=== PATIENT | male | born 1955 | race Caucasian/White ===

== ENCOUNTER 2016-03-04 11:51 | Emergency (ER) | payer OTHER ==
[~2016-03-04] VITALS: Ht 170.2 cm; Wt 80.0 kg
[~2016-03-04 11:51] MED LIST: ASPI81TA28 PO; ATOR-22 PO; FLNIN NAE; LANS30CA12 PO; METO50TA16 PO; MULT-923 PO; PROB1TAB16 PO; TRAMTAB5 PO; TYLOTC500 PO
[2016-03-04 11:57] VITALS: TEMP 37; Ht 170.2 cm; Wt 80.0 kg
[2016-03-04] MEDS ORDERED: ONDANSETRON INJ 2 MG/ML 2 ML VIAL IV STA (12:55)
[2016-03-04] MEDS ORDERED: KETOROLAC TROMETHAMINE 30 MG/ML VIAL IV STA (12:55)
[2016-03-04] MEDS ORDERED: SODIUM CHLORIDE 0.9% 1000ML 2,000 ML IV STA (12:55)
[2016-03-04] MEDS ORDERED: MoRPHine SULFATE 10 MG/ML CARP/VIAL IV STA (12:55)
[2016-03-04] MEDS ORDERED: HYDROCODONE/HOMATROPINE SYRUP 5MG/1.5MG 5ML UDP PO STA (12:55)
[2016-03-04 13:09] LABS: BASO % 0.3 %; BASO ABS # 0.03 K/uL (0-0.2); COMPLETE YES; EOS % 1.5 %; HEMATOCRIT 42.2 % (42-52); IG% 0.2 %; LYMPH % 16.9 %; LYMPH ABS # 1.63 K/uL (1.2-3.4); MEAN CELL VOLUME 88.1 fL (80-100); MEAN CORPUSCULAR HEMOGLOBIN 30.9 pg (25-34); MEAN CORPUSCULAR HGB CONC 35.1 g/dl (32-36); MEAN PLATELET VOLUME 10.5 fL (7.4-10.4); MONO % 9.7 %; NEUT % 71.4 %; PLATELET COUNT 234 K/uL (130-400); RED BLOOD COUNT 4.79 M/uL (4.7-6.1); WHITE BLOOD COUNT 9.63 K/uL (4.8-10.8)
[2016-03-04 13:17] LABS: BUN/CREATININE RATIO 12.7 (10-20); CALCIUM 8.6 mg/dl (8.5-10.1); CREATININE 0.84 mg/dl (0.60-1.40); POTASSIUM 4.1 mmol/L (3.5-5.1)
[2016-03-04] MEDS ORDERED: LEVAQUIN 750MG / 150ML D5W IV STA (14:09)
--- NOTE | 2016-03-04 14:10 | DIAGNOSTIC IMAGING REPORT ---
TWO VIEW CHEST CLINICAL HISTORY: Cough. FINDINGS: PA and lateral chest radiographs are compared to study dated 02/06/2016. The heart is enlarged. The pulmonary vasculature is noncongested. There is bibasilar consolidation. No pleural effusion is seen. The upper lobes appear clear. Chronic residual thickening is similar to previous. There is no pneumothorax. The skeletal structures are osteopenic. The bony thorax appears intact. Degenerative changes noted throughout the thoracic spine. IMPRESSION: 1. There is bibasilar patchy airspace consolidation, new from 02/06/2016. Correlate clinically for evidence of developing pneumonia/aspiration pneumonitis. Radiographic follow-up to resolution is recommended. 2. Mild cardiac enlargement without radiographic evidence of congestive failure. Electronically signed by: Boni Carvalho M.D. 03/04/2016 2:08 PM
[2016-03-04] MEDS ORDERED: LEVO1TAB35 PO (16:11)
[2016-03-04] MEDS ORDERED: HYDR5SYP11 PO (16:14)
[2016-03-04 16:27] VITALS: BP 149/96; PULSE 74; O2SAT 96
--- NOTE | 2016-03-04 17:56 | EMERGENCY ROOM VISIT NOTE ---
History Report prepared by Carlos Albertoibstan: Arlene Tyson Under the Supervision of: Dr. Brian Siegel D.O. First contact with patient: 12:42 Chief Complaint: ILLNESS Stated Complaint: COUGH,CONGESTION,DIZZINESS,FEVER History of Present Illness The patient is a 60 year old male who presents to the Emergency Room with complaints of a persistent cough for the past 1 week. He states today is the "best" the cough has been and also complains of congestion and a fever. He reports he also vomited on , 7 days ago, and complains of body aches from all of the coughing he has been doing, especially in his back and chest. He denies any history of asthma or COPD. 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 His last bowel movement was last night and normal. The patient admits to some recent sick contacts at work. He also complains of some dizziness. He denies any headache, change in vision, chest pain, shortness of breath, diarrhea, pain with urination, and melena. 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 A total of 10 systems reviewed and were otherwise negative. Past Medical & Surgical Medical Problems: (1) Esophageal dilatation (2) GERD (gastroesophageal reflux disease) (3) Hx of dysphagia (4) Hyperlipidemia (5) Kidney stones Family History FHx: cancer FHx: heart disease FHx: kidney disease/stones Social History Smoking Status: Never Smoker Alcohol Use: none Drug Use: none Marital Status: single Housing Status: lives alone Occupation Status: employed Current/Historical Medications Scheduled Aspirin (Aspirin Ec), 81 MG PO QAM Atorvastatin (Lipitor), 1 TAB PO HS Fluticasone Propionate (Flonase Nasal [place]), 2 SPRAYS SUE QAM Lansoprazole (Prevacid), 30 MG PO QPM Levofloxacin (Levaquin), 750 MG PO QD@08 Metoprolol Tartrate (Lopressor) (Lopressor), 50 MG PO BID Multiple Vitamins W/ Minerals (Multivitamin Men), 1 TAB PO BID Probiotic Product (Probiotic), 1 TAB PO QPM Scheduled PRN Acetaminophen (Tylenol), 500 MG PO Q6 PRN Hydrocodone W/ Homatropine (Hycodan 5/1.5MG 5 Ml), 5 ML PO Q6H PRN for Cough Allergies Coded Allergies: Hydrocodone (Verified Adverse Reaction, Unknown, MOOD CHANGES, 03/04/16) GETS STONED Physical Exam Vital Signs Date Time Temp Pulse Resp B/P Pulse Ox O2 Delivery O2 Flow Rate FiO2 03/04/16 16:27 74 18 149/96 96 03/04/16 15:00 74 20 155/106 94 03/04/16 13:27 86 18 125/86 98 Room Air 03/04/16 11:57 37.0 93 18 132/90 98 Room Air Physical Exam GENERAL: Patient is sitting up in bed with persistent dry cough, alert, uncomfortable appearing, well nourished, no distress, non-toxic EYE EXAM: normal conjunctiva OROPHARYNX: no exudate, no erythema, lips, buccal mucosa, and tongue normal and mucous membranes are moist NECK: supple, no nuchal rigidity, no adenopathy, non-tender LUNGS: Clear to auscultation. Normal chest wall mechanics HEART: no murmurs, S1 normal and S2 normal CHEST: Reproducible tenderness over chest wall. ABDOMEN: abdomen soft, non-tender, normo-active bowel sounds, no masses, no rebound or guarding. BACK: Back is symmetrical on inspection and there is no deformity, no midline tenderness, no CVA tenderness. SKIN: no rashes and no bruising UPPER EXTREMITIES: upper extremities are grossly normal. LOWER EXTREMITIES: No pitting edema. NEURO EXAM: Normal sensorium, cranial nerves II-XII grossly intact, normal speech, no gross weakness of arms, no gross weakness of legs. Gross sensation intact. Medical Decision & Procedures ER Provider Diagnostic Interpretation: This X-Ray was reviewed and interpreted by myself and the radiologist. TWO VIEW CHEST IMPRESSION: 1. There is bibasilar patchy airspace consolidation, new from 02/06/2016. Correlate clinically for evidence of developing pneumonia/aspiration pneumonitis. Radiographic follow-up to resolution is recommended. 2. Mild cardiac enlargement without radiographic evidence of congestive failure. Electronically signed by: Boni Carvalho M.D. 03/04/2016 2:08 PM Laboratory Results 03/04/16 12:31 Red Blood Count 4.79, Mean Corpuscular Volume 88.1, Mean Corpuscular Hemoglobin 30.9, Mean Corpuscular Hemoglobin Concent 35.1, Mean Platelet Volume 10.5, Neutrophils (%) (Auto) 71.4, Lymphocytes (%) (Auto) 16.9, Monocytes (%) (Auto) 9.7, Eosinophils (%) (Auto) 1.5, Basophils (%) (Auto) 0.3, Neutrophils # (Auto) 6.88, Lymphocytes # (Auto) 1.63, Monocytes # (Auto) 0.93, Eosinophils # (Auto) 0.14, Basophils # (Auto) 0.03 03/04/16 12:31 Test 03/04/16 12:31 03/04/16 13:05 White Blood Count 9.63 K/uL (4.8-10.8) Red Blood Count 4.79 M/uL (4.7-6.1) Hemoglobin 14.8 g/dL (14.0-18.0) Hematocrit 42.2 % (42-52) Mean Corpuscular Volume 88.1 fL (80-100) Mean Corpuscular Hemoglobin 30.9 pg (25-34) Mean Corpuscular Hemoglobin Concent 35.1 g/dl (32-36) Platelet Count 234 K/uL (130-400) Mean Platelet Volume 10.5 fL (7.4-10.4) Neutrophils (%) (Auto) 71.4 % Lymphocytes (%) (Auto) 16.9 % Monocytes (%) (Auto) 9.7 % Eosinophils (%) (Auto) 1.5 % Basophils (%) (Auto) 0.3 % Neutrophils # (Auto) 6.88 K/uL (1.4-6.5) Lymphocytes # (Auto) 1.63 K/uL (1.2-3.4) Monocytes # (Auto) 0.93 K/uL (0.11-0.59) Eosinophils # (Auto) 0.14 K/uL (0-0.5) Basophils # (Auto) 0.03 K/uL (0-0.2) RDW Standard Deviation 43.0 fL (36.4-46.3) RDW Coefficient of Variation 13.3 % (11.5-14.5) Immature Granulocyte % (Auto) 0.2 % Immature Granulocyte # (Auto) 0.02 K/uL (0.00-0.02) Anion Gap 10.0 mmol/L (3-11) Est Creatinine Clear Calc Drug Dose 96.0 ml/min Estimated GFR () 111.1 Estimated GFR (Non- 95.8 BUN/Creatinine Ratio 12.7 (10-20) Calcium Level 8.6 mg/dl (8.5-10.1) Influenza Type A Antigen Neg for Influ A (NEG) Influenza Type B Antigen Neg for Influ B (NEG) Laboratory results per my review. Medications Administered Medications (Trade) Dose Ordered Sig/Mely Route Start Time Stop Time Status Last Admin Dose Admin Sodium Chloride (Nss 1000ml) 2,000 ml @ 999 mls/hr Q2H1M STAT IV 03/04/16 12:55 03/04/16 14:55 DC 03/04/16 12:55 999 MLS/HR Ondansetron HCl (Zofran Inj) 4 mg NOW STAT IV 03/04/16 12:55 03/04/16 12:59 DC 03/04/16 13:11 4 MG Ketorolac Tromethamine (Toradol Inj) 30 mg NOW STAT IV 03/04/16 12:55 03/04/16 12:59 DC 03/04/16 13:11 30 MG Morphine Sulfate (MoRPHine SULFATE INJ) 4 mg NOW STAT IV 03/04/16 12:55 03/04/16 12:59 DC 03/04/16 13:10 4 MG Hydrocodone Bit/ Homatropine Methylb (Hycodan Syrup) 5 ml NOW STAT PO 03/04/16 12:55 03/04/16 12:59 DC 03/04/16 13:11 5 ML Levofloxacin (Levaquin / D5w) 750 mg NOW STAT IV 03/04/16 14:09 03/04/16 14:11 DC 03/04/16 14:33 750 MG ED Course ED COURSE: Vital signs were reviewed and showed normal vital signs. The patients medical record was reviewed The above diagnostic studies were performed and reviewed. ED treatments and interventions as stated above. 1247: The patient was evaluated in room B9. A complete history and physical examination was performed. 1255: Hycodan 5 ml PO, Morphine Sulfate 4 mg IV, Toradol 30 mg IV, Zofran 4 mg IV, NSS 2000 ml @ 999 mls/hr IV. 1409: Levaquin 750 mg IV. 1615: Upon reevaluation, the patient is feeling better. I discussed my findings with the patient and he understands and agrees with the treatment plan. Based on the patients age, coexisting illnesses, exam and lab findings the decision to treat as an outpatient was made. The patient remained stable while under my care. The patient appeared well at the time of discharge. Medical Decision Differential diagnoses includes but is not limited to pneumonia, bronchitis, COPD/Asthma exacerbation, pneumothorax, pulmonary embolism, congestive heart failure, acute coronary syndrome Patient is a 60-year-old male who presents the ER for persistent cough which is productive in nature. He notes that has been worsening since Elise. He is afebrile. He denies any history of asthma or COPD. On exam lungs are clear. Vitals are stable was given fluids, morphine and Vicodin with significant improvement of his cough. Chest x-ray supports a pneumonia. He is given a dose of IV Levaquin. This would be community acquired pneumonia. Pulse ox was stable in the mid 90s. He was discharged to follow-up with his PCP with pneumonia. Influenza AB was negative. He is instructed not to drink, drive, operate heavy machinery or work while taking hycodan. Discussed with Pt concerning signs and symptoms to watch out for. Pt was instructed to follow up with their PCP and discussed with the patient their option to return to the ED at anytime for persistent or worsening symptoms. The appropriate anticipatory guidance and out-patient management, including indications for return to the emergency department, were explained at length to the patient and understood. [place] Drug Monitoring Program Search Results: patient reviewed within database, no issues identified Impression Primary Impression: Pneumonia Scribe Attestation The scribe's documentation has been prepared under my direction and personally reviewed by me in its entirety. I confirm that the note above accurately reflects all work, treatment, procedures, and medical decision making performed by me. Departure Information Dispostion Home / Self-Care Prescriptions Hydrocodone W/ Homatropine (HYCODAN 5/1.5MG 5 ML) 1 Syp Syp 5 ML PO Q6H Y for Cough, #60 ML Prov: Brian Siegel, DO 03/04/16 Levofloxacin (Levaquin) 750 Mg Tab 750 MG PO QD@08, #9 TAB Prov: Brian Siegel, DO 03/04/16 Referrals No Doctor, Assigned (PCP) Patient Instructions A Signature Page, [facility], Pneumonia (Bacterial) - [facility] Additional Instructions Please follow up with your primary care doctor with in the next 24 hours. Any worsening of your symptoms, please return to the ED immediately. This includes persistent fevers greater than 100.4, worsening shortness of breath, chest pain , or any other concerning signs or symptoms from your standpoint. You were given medications during this visit that will inhibit your ability to drive, operate machinery and work. Please do NOT drive, operate machinery or work for the next 12hrs. You were also given a prescription for a narcotic called hycadon. While taking this medication you should also not drive, operate machinery and or work.
== END 2016-03-04 16:59 | disposition home or self-care (01) ==
LOC: C.EDB 11:52
DX: J18.9 Pneumonia, unspecified organism (principal); R11.10 Vomiting, unspecified; K21.9 Gastro-esophageal reflux disease without esophagitis; E78.5 Hyperlipidemia, unspecified; Z79.82 Long term (current) use of aspirin; Z79.899 Other long term (current) drug therapy

== ENCOUNTER → 2016-07-12 | Outpatient (CLI) | payer OTHER ==
[~2016-07-12] MED LIST changes: +LEVO1TAB35 PO; -TRAMTAB5 PO
[2016-07-12 13:05] LABS: ALT/SGPT 25 U/L (12-78); BLOOD UREA NITROGEN 11 mg/dl (7-18); BUN/CREATININE RATIO 13.2 (10-20); CARBON DIOXIDE 26 mmol/L (21-32); CHLORIDE 107 mmol/L (98-107); CHOLESTEROL 171 mg/dl (0-200); CREATININE 0.84 mg/dl (0.60-1.40); GLUCOSE 99 mg/dl (70-99); POTASSIUM 3.9 mmol/L (3.5-5.1); SODIUM 141 mmol/L (136-145)
[2016-07-12 13:08] LABS: ALB/GLOB RATIO 1.1 (0.9-2); ALKALINE PHOSPHATASE 50 U/L (45-117); AST/SGOT 21 U/L (15-37); CHOLESTEROL/HDL RATIO 3.4; HDL CHOLESTEROL 50 mg/dl; LDL CHOLESTEROL CALCULATED 98 mg/dl; TRIGLYCERIDES 116 mg/dl (0-150); VERY LOW DENSITY LIPOPROT CALC 23 mg/dl
== END | disposition home or self-care (01) ==
LOC: C.LABPBG 07:41
PROVIDERS: ATTEND Neuromusculoskeletal Medicine & OMM
DX: Z00.00 Encounter for general adult medical examination without abnormal findings (principal); I10 Essential (primary) hypertension

== ENCOUNTER → 2016-12-12 | Outpatient (CLI) | payer OTHER ==
[~2016-12-12] MED LIST changes: -LEVO1TAB35 PO
--- NOTE | 2016-12-12 10:13 | DIAGNOSTIC IMAGING REPORT ---
RIGHT KNEE 2 VIEWS HISTORY: Right knee pain. COMPARISON: None. FINDINGS: There is no fracture or dislocation. Trace knee effusion. The bones are osteopenic. Mild vascular calcifications are noted. Moderate cartilage space narrowing within the medial compartment of the knee and patellofemoral compartments. There are tricompartmental marginal osteophytes. Mild cartilage space narrowing within the lateral compartment. No radiopaque foreign bodies. IMPRESSION: 1. No fracture or dislocation within the right knee. 2. Tricompartmental osteoarthritis as described above. 3. Diffuse osteopenia. 4. Trace knee effusion. Electronically signed by: Richard Bates M.D. 12/12/2016 10:12 AM Dictated Date/Time: 12/12/2016 10:10 AM
== END | disposition home or self-care (01) ==
LOC: C.RAD 09:44
PROVIDERS: ATTEND Neuromusculoskeletal Medicine & OMM
DX: M25.561 Pain in right knee (principal); M17.11 Unilateral primary osteoarthritis, right knee; M85.861 Other specified disorders of bone density and structure, right lower leg